=== PATIENT | male | born 1945 | race Caucasian/White ===

== ENCOUNTER 2023-06-28 13:30 | Outpatient (CLI) | payer MEDICARE, BC ==
[~2023-06-28 13:30] MED LIST: ASPI81TA52 PO; COU4T PO; DIAZ10TA PO; DILT240C88 PO; LEVO150T PO; METO50TA7 PO
== END 2023-06-28 23:59 | disposition home or self-care (01) ==
LOC: RAD 13:30
PROVIDERS: ATTEND Physician Assistant
DX: N28.1 Cyst of kidney, acquired (principal); R31.0 Gross hematuria
CPT/HCPCS: 76770